=== PATIENT | female | born 1980 | race American Indian/Alaskan Native ===

== ENCOUNTER 2021-09-16 17:59 | Emergency (ER) | payer OTHER ==
[2021-09-16 23:20] LABS: Bilirubin,Urine NEG (Negative); Blood,Urine NEG (Negative); Color,Urine Yellow (Yellow); Mucus,Urine FEW /HPF; Protein,Urine <15 mg/dL mg/dL (Negative); Urobilinogen,Urine < 2.0 mg/dL (<2.0)
[2021-09-16 23:24] LABS: HCG Qualitative,Urine Negative (Negative)
--- NOTE | 2021-09-16 23:49 | Emergency Department Report ---
ED General Adult HPI - General Chief complaint: Fever Stated complaint: FEVER Source: patient Mode of arrival: Ambulatory Limitations: No Limitations - History of Present Illness Initial comments: Patient is a 41-year-old -[place] female with a history of morbid obesity who presented to the ED with complaint of acute onset persistent diffuse body aches and pains, subjective fever and chills, nasal and sinus congestion, persistent dry cough, urinary frequency and urgency and vaginal discharge for the last 2 days. Patient stated that she is currently not sexually active and that the last time she had sexual intercourse was over 2 months ago. Patient stated that she has been taking Goody powder for the last 2 days for fever and chills. Patient denies abdominal pain, nausea, vomiting, diarrhea, dizziness, dysuria, low back pain, sore throat, headache, change in vision or palpitation, chest pain or shortness of breath. MD Complaint: Diffuse body aches and pains, fever and chills, -: Sudden, days(s) (2) Location: head, chest, genitals Radiation: non-radiation Severity scale (0 -10): 0 Quality: dull Consistency: intermittent Improves with: none Worsens with: none Associated Symptoms: denies other symptoms, cough, malaise. denies: confusion, chest pain, diaphoresis, fever/chills, headaches, loss of appetite, nausea/vomiting, rash, seizure, shortness of breath, syncope, weakness Treatments Prior to Arrival: none - Related Data Previous Rx's Medication Instructions Recorded Last Taken Type Acetaminophen [Tylenol] 500 mg PO Q6HR PRN #30 tablet 09/16/21 Unknown Rx Cetirizine HCl [ZyrTEC 10mg rapdis] 10 mg PO DAILY #30 tab.rapdis 09/16/21 Unknown Rx Fluconazole [Diflucan TAB] 200 mg PO QDAY #2 tablet 09/16/21 Unknown Rx metroNIDAZOLE [Flagyl] 500 mg PO Q12HR #14 tab 09/16/21 Unknown Rx Allergies Allergy/AdvReac Type Severity Reaction Status Date / Time No Known Allergies Allergy Unverified 09/16/21 19:27 ED Review of Systems ROS: Stated complaint: FEVER Other details as noted in HPI Constitutional: chills, fever, malaise Eyes: denies: eye pain, eye discharge, vision change ENT: congestion. denies: ear pain, throat pain Respiratory: cough. denies: shortness of breath, wheezing Cardiovascular: denies: chest pain, palpitations Endocrine: no symptoms reported Gastrointestinal: denies: abdominal pain, nausea, vomiting, diarrhea, hematochezia Genitourinary: frequency, discharge. denies: urgency, dysuria, hematuria, abnormal menses, dyspareunia Musculoskeletal: arthralgia, myalgia. denies: back pain, joint swelling Skin: denies: rash, lesions Neurological: headache. denies: weakness, paresthesias Psychiatric: denies: anxiety, depression Hematological/Lymphatic: denies: easy bleeding, easy bruising ED Past Medical Hx - Past Medical History Previous Medical History?: No - Surgical History Past Surgical History?: No - Medications Home Medications: Home Medications Medication Instructions Recorded Confirmed Last Taken Type Acetaminophen [Tylenol] 500 mg PO Q6HR PRN #30 tablet 09/16/21 Unknown Rx Cetirizine HCl [ZyrTEC 10mg rapdis] 10 mg PO DAILY #30 tab.rapdis 09/16/21 Unknown Rx Fluconazole [Diflucan TAB] 200 mg PO QDAY #2 tablet 09/16/21 Unknown Rx metroNIDAZOLE [Flagyl] 500 mg PO Q12HR #14 tab 09/16/21 Unknown Rx ED Physical Exam - General Limitations: No Limitations General appearance: alert, in no apparent distress - Head Head exam: Present: atraumatic, normocephalic, normal inspection - Eye Eye exam: Present: normal appearance, PERRL, EOMI Pupils: Present: normal accommodation - ENT ENT exam: Present: normal orophraynx, mucous membranes moist, TM's normal bilaterally, normal external ear exam, other (Grossly congested nasal passages) - Neck Neck exam: Present: normal inspection, full ROM - Respiratory Respiratory exam: Present: normal lung sounds bilaterally. Absent: respiratory distress, wheezes, rales, rhonchi, chest wall tenderness, accessory muscle use, prolonged expiratory - Cardiovascular Cardiovascular Exam: Present: normal rhythm, tachycardia, normal heart sounds. Absent: systolic murmur, diastolic murmur, rubs, gallop - GI/Abdominal GI/Abdominal exam: Present: soft, normal bowel sounds. Absent: tenderness, guarding, rebound, rigid, hyperactive bowel sounds, hypoactive bowel sounds - Extremities Exam Extremities exam: Present: normal inspection, full ROM, normal capillary refill - Back Exam Back exam: Present: normal inspection, full ROM. Absent: tenderness, CVA tenderness (R), CVA tenderness (L), muscle spasm, paraspinal tenderness, vertebral tenderness - Neurological Exam Neurological exam: Present: alert, oriented X3, CN II-XII intact, normal gait, reflexes normal - Psychiatric Psychiatric exam: Present: normal affect, normal mood - Skin Skin exam: Present: warm, dry, intact, normal color. Absent: rash ED Course Vital Signs 09/16/21 19:25 Temperature 97.9 F Pulse Rate 115 H Respiratory 16 Rate Blood Pressure 151/86 O2 Sat by Pulse 100 Oximetry ED Medical Decision Making - Medical Decision Making This is a 41-year-old -[place] female with a history of morbid obesity who presented to the ED with complaint of acute onset persistent diffuse body aches and pains, subjective fever and chills, nasal and sinus congestion, persistent dry cough, urinary frequency and urgency and vaginal discharge for the last 2 days. Patient stated that she is currently not sexually active and that the last time she had sexual intercourse was over 2 months ago. Patient stated that she has been taking Goody powder for the last 2 days for fever and chills. In the ED, patient is alert and oriented x3 and is not in distress. Patient is however tachycardic but afebrile in triage. Urinalysis is unremarkable. Based on the history and physical exam findings, and lab test results, patient was discharged home on medications and advised to follow-up with her primary care physician in 7-10 days for reevaluation or return to the ED immediately if symptoms get worse. - Differential Diagnosis UTI; URI; viral syndrome; arabella vaginitis; Bacterial vaginosis; STD Critical care attestation.: If time is entered above; I have spent that time in minutes in the direct care of this critically ill patient, excluding procedure time. ED Disposition Clinical Impression: Viral upper respiratory tract infection with cough, Vaginal discharge, Bacterial vaginosis, Candidal vaginitis Disposition: HOME / SELF CARE / HOMELESS Is pt being admited?: No Does the pt Need Aspirin: No Condition: Stable Instructions: Viral Respiratory Infection, [id number], Vaginitis, [id number], Cough, Adult, [id number], Bacterial Vaginosis (ED) Additional Instructions: Take medication with food, drink plenty of fluids and follow-up with your primary care physician in 7 to 10 days for reevaluation. Return to the ED immediately if symptoms get worse Prescriptions: Acetaminophen [Tylenol] 500 mg PO Q6HR PRN #30 tablet PRN Reason: Pain or fever Fluconazole [Diflucan TAB] 200 mg PO QDAY #2 tablet metroNIDAZOLE [Flagyl] 500 mg PO Q12HR #14 tab Cetirizine HCl [ZyrTEC 10mg rapdis] 10 mg PO DAILY #30 tab.rapdis Referrals: [facility] [Provider Group] - 7-10 days Forms: STI Treatment and Prevention Time of Disposition: 23:53 Print Language: [id number]
[2021-09-17 00:50] VITALS: BP 146/114
== END 2021-09-17 00:39 | disposition home or self-care (01) ==
LOC: ED 17:59
DX: B37.3 Candidiasis of vulva and vagina (principal); J06.9 Acute upper respiratory infection, unspecified; R05.9 Cough, unspecified; N89.8 Other specified noninflammatory disorders of vagina
CPT/HCPCS: 81001; 81025; 99283